=== PATIENT | male | born 1960 | race Caucasian/White ===

== ENCOUNTER 2022-05-25 05:53 | Day surgery (SDC) | payer BC, SELFPAY ==
[2022-05-25] VITALS (23 sets, daily range): BP systolic 105–151; BP diastolic 62–96; PULSE 60–86; RESP 12–18; TEMP 35.8–36.5; O2SAT 94–100; BMI 32.5
[2022-05-25] MEDS: ACETAMINOPHEN 500 MG TABLET 1000 MG PO ×3 (06:15→20:32)
[2022-05-25] MEDS: OXYCODONE (CR) 10 MG TAB.ER.12H PO (06:15)
[2022-05-25] MEDS: CELECOXIB 200 MG CAPSULE PO ×2 (06:15→20:32)
[2022-05-25] MEDS: SODIUM CHLORIDE 0.9 % (FLUSH) 10 ML SYRINGE IVF (06:45)
[2022-05-25] MEDS: LACTATED RINGERS 1000 ML 1,000 ML 100 ML IV (06:45)
--- NOTE | 2022-05-25 07:34 | CRLHL7_ITS ---
For Patients: As a result of the Cures Act, medical imaging exams and procedure reports are released immediately into your electronic medical record. You may view this report before your referring provider. If you have questions, please contact your health care provider. Indication: POST OP TKA Technique: Two views right knee Findings/Impression: Hardware from a right total knee arthroplasty is in satisfactory position. Bone alignment is normal. No sign of acute fracture. Postop changes are within normal limits. Dictated by Colton Spencer MD @ 05/25/2022 12:44:12 PM (Electronically Signed)
--- NOTE | 2022-05-25 07:34 | CRLHL7_ITS ---
For Patients: As a result of the Cures Act, medical imaging exams and procedure reports are released immediately into your electronic medical record. You may view this report before your referring provider. If you have questions, please contact your health care provider. Indication: POST OP TKA Technique: Two views left knee Findings/Impression: Hardware from a left total knee arthroplasty is in satisfactory position. Bone alignment is normal. No sign of acute fracture. Postop changes are within normal limits. Dictated by Colton Spencer MD @ 05/25/2022 12:45:11 PM (Electronically Signed)
[2022-05-25] MEDS: MIDAZOLAM HCL 1 MG/ML inj IVP (07:36)
[2022-05-25] MEDS: fentaNYL 100 MCG/2 ML inj IVP (07:36)
--- NOTE | 2022-05-25 07:36 | SUR.PREOP ---
TIME?OUT:?0735 PT/RN/MDA?VERIFICATION?OF?SURGICAL?SITE,?PROCEDURE,?AND?CONSENT OBTAINED?PRIOR?TO?INVASIVE?PROCEDURE.
--- NOTE | 2022-05-25 08:03 | W.ANESCHARGE ---
Anesthesia Charges Start Date/Time Anesthesia Start Date: 05/25/22 Anesthesia Start Time: 08:07 Stop Date/Time Anesthesia Stop Date: 05/25/22 Anesthesia Stop Time: 12:11
--- NOTE | 2022-05-25 08:04 | W.PM.NB ---
Nerve Block Nerve Block Time Seen by Provider: 07:38 Date Seen: 05/25/22 Type of block requested by surgeon for post-operative analgesia: adductor canal Side: bilateral Time out performed: Yes Verification of patient name: Yes Verification of date of : Yes Site marking: site marked Name of person performing procedure: Richi Continuous monitoring Was continuous monitoring of O2 sat, B/P, cardiac specialist, recorded every 15 minutes?: Yes Procedure Checklist: sterile prep, needles and gloves Ultrasound guided. Images saved: Yes Medications given in 5ml increments after negative aspiration: Marcaine %: 0.25 mL: 26 Needle gauge: 20 and Exparel mL: 14 Patient tolerated procedure well: Yes Additional comments: Needle noted adjacent to nerve Block Charges Block Charge (with Pro Fee): Femoral Nerve Use of Ultrasound Machine for Block: Yes- US Guidance/pain block
--- NOTE | 2022-05-25 08:05 | P.NB_ITS ---
Nerve Block Nerve Block Time Seen by Provider: 07:38 Type of block requested by surgeon for post-operative analgesia: geniculars Side: bilateral Time out performed: Yes Verification of patient name: Yes Verification of date of : Yes Site marking: site marked Name of person performing procedure: Richi Continuous monitoring Was continuous monitoring of O2 sat, B/P, front desk monitor, recorded every 15 minutes?: Yes Procedure Checklist: sterile prep, needles and gloves Medications given in 5ml increments after negative aspiration: Marcaine %: 0.25 mL: 14 Needle gauge: 25 and Exparel mL: 6 Patient tolerated procedure well: Yes Block Charges Block Charge (with Pro Fee): Genicular Nerve Block Use of Ultrasound Machine for Block: No
[2022-05-25] MEDS: CEFAZOLIN 2 GM in 0.9 % SODIUM CHLORIDE Mini-bag 100 ML IVPB ×3 (08:15→22:11)
[2022-05-25] MEDS: TRANEXAMIC ACID 100 MG/ML INJ 1000 MG IV (08:21)
[2022-05-25] MEDS: CEFAZOLIN 1 GM in 0.9 % SODIUM CHLORIDE Mini-bag 100 ML IVPB (10:18)
--- NOTE | 2022-05-25 11:17 | PM.ORPRC ---
Procedure Note Date of procedure: 05/25/22 Procedure: PREOPERATIVE DIAGNOSIS: 1. Bilateral knee osteoarthritis, primary, severe POSTOPERATIVE DIAGNOSIS: 1. Bilateral knee osteoarthritis, primary, severe PROCEDURE: 1. Bilateral total knee arthroplasty SURGEON: Armando Christensen MD. CARDIOPULMONARY TECHNICIAN AND EEG TECH: Cesar Sarmiento PA-C - Of note, an assistant cross country coach was critical for this case to aid in patient positioning, tissue retraction, limb manipulation/positioning, patient safety, and closure. ANESTHESIA: Spinal anesthetic IMPLANTS: DePuy J&J uncemented femur & tibia (cemented patella) TKA - Attune Right: PS femur size 7, tibia size 6, 5 mm poly spacer, 41 mm patella Left: PS femur size 6 regular, tibia size 6, 5 mm poly spacer, 41 mm patella TOURNIQUET: 90 minutes min on the right at 300 torr; 91 min on the left at 300 torr with 10+ minutes of tourniquet deflation between tourniquet inflation episodes. COMPLICATIONS: None evident INDICATIONS: The patient is a pleasant 61-year-old male who has experienced severe bilateral knee pain and difficulty bearing weight. Workup included x-rays which revealed severe osteoarthrosis in both knees. Given the deformity, the dysfunction, and the pain, as well as the failure of nonoperative management, recommendation was made for surgery. DESCRIPTION OF PROCEDURE: Following a thorough discussion of risks, benefits, and alternatives consent was obtained and the right knee was marked. The patient was brought to the operating room and placed supine on the operating table. Induction of anesthesia was undertaken. 2 g IV Ancef and 1 g tranexamic acid was administered within 1 hr of incision preoperatively. An additional 1 g IV Ancef was administered within 30 min of starting the 2nd side. Proper time-out was performed identifying proper patient, site, procedure. Bilateral operative extremities were prepped and draped in the appropriate sterile fashion using ChloraPrep after the patient was positioned supine with all bony prominences well padded. The left leg was initially covered with an extra draped and we began on the left TKA. A longitudinal, anterior, midline skin incision was made starting approximately 3cm proximal to the superior pole of the patella and advanced distal to the tibial tubercle. Full-thickness broad chondral loss medial femoral condyle and medial tibia. Significant chondromalacia patellofemoral compartment. To a lesser degree lateral compartment chondromalacia. All 3 compartments showed osteophytes. A median parapatellar arthrotomy was created and a moderate effusion evacuated. A medial subperiosteal sleeve was created with knife, amaya elevator and curved osteotome. The retropatellar fat pad was resected and the synovium in the suprapatellar pouch excised to visualize the anterior femoral cortex. Femoral preparation was performed via an intramedullary guide. Step drill allowed access into the femoral canal. The canal was suctioned, irrigated, suction, and this process repeated. The distal cutting guide was placed with 5 ? of valgus and 10 mm cut on the distal femur. Femur was sized using a anterior referencing guide in 3? of external rotation based on the posterior femoral condylar axis and trans epicondylar access/Whitesides line . This found have a best fit with the sizing noted above. The 4 in 1 cutting block was then placed, and the distal femur shaped accordingly. The box cut was then created and the trial implant inserted to confirm appropriate fit. We turned our attention to the proximal tibia. Extramedullary guide was utilized for cutting with the goal of being 90 degree cut from the mechanical axis of the tibia in the varus/valgus plane utilizing tibial crest as the primary alignment. Initially a 2 mm resection was performed from the medial tibial plateau. Ultimately, balancing was achieved in both flexion and extension in both varus and valgus. The knee was able to achieve full extension as well comfortably. The patella was initially measured and found have a thickness of 26 mm. It was resected back to approximately 16 mm. It was sized to be a best fit with as noted above. This was drilled, trial placed. All trials were placed and found to have an excellent stability and balance. At this stage, trial implants were removed, the knee was thoroughly irrigated with normal saline after injecting the posterior capsule with Marcaine with epi, and the cement was mixed. After irrigation, the knee was thoroughly dried, and cement placed, with the real tibial and femoral implants placed along with the patella. Trial poly spacer was placed and confirmed to have excellent range of motion and full extension, and the real poly spacer opened and inserted. All extra cement was removed, and a 3 min Betadine soak performed. Finally, a final irrigation round with normal saline was performed. Closure performed with 0 Vicryl and #0 Stratafix for the quad tendon/retinaculum. The tourniquet was deflated, and 2-0 Vicryl for the subcutaneous and 4-0 Monocryl for subcuticular closure was completed. Dressings were applied and attention was turned to the contralateral left side. This same process was utilized on the contralateral side including same approach, same dissection, same femoral tunnel access and irrigation, extramedullary guide for the tibia, with a similar process for cutting depths, and sizing of femoral & tibial implants. Of note, this contralateral knee showed similar changes of full-thickness broad chondral loss medial compartment. Also significant chondromalacia patellofemoral compartment. To lesser degree lateral compartment chondromalacia but tricompartmental osteophytes noted. The knee was placed through range of motion found to be stable to varus and valgus stress at 0 and 30? as well as with anterior health administrator all ranges at 15 -30 degree increments. Again a 3 min Betadine soak was performed when the real poly had been opened and inserted, and all remaining cement had been removed. Finally, final round of irrigation was completed with normal saline and closure performed as above with 0 Vicryl, # 0 Stratafix for the quad tendon/retinaculum, 2-0 Vicryl for subcutaneous and 4-0 Monocryl for subcuticular closure. PLAN: 1. Weight bear as tolerated operative extremities. 2. 23 hr perioperative antibiotics. 3. Ice. 4. PT/OT consults for ambulation assistance/mobility education. 5. Social work consult for discharge planning. 6. DVT prophylaxis with at SCDs, Calos Hose, and aspirin twice daily.
--- NOTE | 2022-05-25 12:11 | W.ANESCHARGE ---
Anesthesia Charges Start Date/Time Anesthesia Start Date: 05/25/22 Anesthesia Start Time: 08:07 Stop Date/Time Anesthesia Stop Date: 05/25/22 Anesthesia Stop Time: 12:11
[2022-05-25] MEDS: HYDROmorphone 0.5 mg/0.5 ml inj IVP ×3 (14:05→23:10)
[2022-05-25] MEDS: ONDANSETRON 2 MG/ML inj 4 MG IVP (14:16)
--- NOTE | 2022-05-25 14:28 | P.IMCN_ITS ---
Date of Consult Patient: Angelito Patient Consult date: 05/25/22 Requesting Physician: Orthopedics Primary Care Provider: Steve Engel MD Consult Narrative Reason for consult: hypercholesterolemia Narrative: Eliot Haas is a 61 year old relatively healthy male underwent elective bilateral total knee arthroplasties today by Dr. Morales. He is feeling chilly post operatively, and pain in both knees is 5/10 right now. He is otherwise doing well with no other complaints. Review of Systems Status of ROS: Reports: 6 or more systems reviewed and unremarkable except as noted in History and below PFSH PFS Medical History (Updated 05/25/22 @ 15:27 by Lilli Vicente MD) Calculus of right kidney (~2016) Colon polyp (~2018) Erectile dysfunction Pure hypercholesterolemia Surgical History (Updated 05/25/22 @ 15:27 by Lilli Vicente MD) H/O wisdom tooth extraction History of extraction of renal calculus (~2007) History of incision and drainage Hx of colonoscopy S/P total knee arthroplasty (05/25/22) Family History (Updated 05/25/22 @ 14:36 by Lilli Vicente MD) Mother Colon cancer, Onset Age: 74 Maternal Grandfather Heart disease Social History , [facility]) Highest level of school completed/degree received: Associate degree: occupational, technical, vocational program Smoking Status: Never smoker Do you use any of these nicotine containing products: None Second hand tobacco smoke exposure: No How often do you have a drink containing alcohol: 2-4 times a month Alcohol type: beer How many standard drinks containing alcohol do you have on a typical day: 1 or 2 How often do you have six or more drinks on one occasion: Never AUDIT-C Alcohol total score: 2 Non-prescribed substance use: denies use Caffeine: Yes (coffee, 2 cups/am) service: No Meds Home Medications and Allergies Home Medications Medication Instructions Recorded Confirmed Type sildenafil 100 mg tablet 50 mg PO DAILY PRN 03/11/22 05/25/22 History simvastatin 5 mg tablet 5 mg PO HS 03/11/22 05/25/22 History ascorbic acid (vitamin C) 500 mg 500 mg PO DAILY 05/23/22 05/25/22 History tablet calcium polycarbophil 625 mg 625 mg PO DAILY 05/23/22 05/25/22 History tablet (FiberCon) cholecalciferol (vitamin D3) 50 50 mcg PO DAILY 05/23/22 05/25/22 History mcg (2,000 unit) capsule glucosamine 116 mg-chondroitin 100 1 cap PO DAILY 05/23/22 05/25/22 History mg-dietary supplement #25 capsule multivitamin with minerals 1 tab PO DAILY 05/23/22 05/25/22 History (Multiple Vitamin-Minerals tablet) triamcinolone acetonide 0.025 % 1 applic topical BID 05/25/22 05/25/22 History topical cream Allergies Allergy/AdvReac Type Severity Reaction Status Date / Time No Known Drug Allergies Allergy Verified 05/25/22 06:15 Exam Narrative: Exam Narrative: General: No acute distress. Awake alert oriented x3. HEENT: Normocephalic atraumatic, pupils equally round and reactive to light and accommodation. Oropharynx clear. Mucous membranes are moist. No cervical lymphadenopathy, thyromegaly or carotid bruits. No JVD. Cardiovascular: Regular rate and rhythm. No murmurs, gallops, or rubs. Chest: No increased work of breathing. Clear to auscultation bilaterally. No crackles or wheezes. Abdomen: Bowel sounds present. Soft, nondistended, nontender. No hepatosplenomegaly or masses. Extremities: Bilateral knee bandages are clean, dry, and intact. No edema, no cyanosis or clubbing. Skin: No jaundice, no pallor, no rashes. Const: Vital Signs, click to edit/add: Vital Signs - 24 hr 05/25/22 06:21 05/25/22 07:35 05/25/22 07:40 Temperature 97.7 F Pulse Rate 72 68 60 Respiratory Rate 16 16 16 Blood Pressure 129/81 124/84 121/85 Pulse Oximetry 96 98 97 Oxygen Delivery Me thod Room Air Nasal Cannula Nasal Cannula Oxygen Flow Rate 2 2 05/25/22 07:45 05/25/22 12:06 05/25/22 12:10 Temperature 97.2 F L Pulse Rate 86 84 81 Respiratory Rate 16 16 14 Blood Pressure 123/96 H 127/84 122/87 Pulse Oximetry 97 98 98 Oxygen Delivery Me thod Nasal Cannula Room Air Room Air Oxygen Flow Rate 2 05/25/22 12:15 05/25/22 12:20 05/25/22 12:25 Temperature 97.3 F L Pulse Rate 78 81 82 Respiratory Rate 12 12 14 Blood Pressure 121/89 123/81 125/91 H Pulse Oximetry 96 96 97 Oxygen Delivery Me thod Room Air Room Air Room Air Oxygen Flow Rate 05/25/22 12:30 05/25/22 12:35 Temperature 97.3 F L Pulse Rate 79 77 Respiratory Rate 16 12 Blood Pressure 124/83 122/80 Pulse Oximetry 98 99 Oxygen Delivery Me thod Room Air Room Air Oxygen Flow Rate Documenting provider has reviewed patient's vital signs: yes Labs Labs: Ordering Physician: Armando Christensen M.D. Date of Service: 05/25/22 Procedure(s): XR knee LT 2V Accession Number(s): [id number] cc: Armando Christensen M.D.; Steve Engel M.D.~ For Patients: As a result of the Cures Act, medical imaging exams and procedure reports are released immediately into your electronic medical record. You may view this report before your referring provider. If you have questions, please contact your health care provider. Indication: POST OP TKA Technique: Two views left knee Findings/Impression: Hardware from a left total knee arthroplasty is in satisfactory position. Bone alignment is normal. No sign of acute fracture. Postop changes are within normal limits. Dictated by Colton Spencer MD @ 05/25/2022 12:45:11 PM (Electronically Signed) Ordering Physician: Armando Christensen M.D. Date of Service: 05/25/22 Procedure(s): XR knee RT 2V Accession Number(s): [id number] cc: Armando Christensen M.D.; Steve Engel M.D.~ For Patients: As a result of the Cures Act, medical imaging exams and procedure reports are released immediately into your electronic medical record. You may view this report before your referring provider. If you have questions, please contact your health care provider. Indication: POST OP TKA Technique: Two views right knee Findings/Impression: Hardware from a right total knee arthroplasty is in satisfactory position. Bone alignment is normal. No sign of acute fracture. Postop changes are within normal limits. Dictated by Colton Spencer MD @ 05/25/2022 12:44:12 PM (Electronically Signed) Assessment and Plan Assessment and plan (1) S/P total knee arthroplasty: Problem comment: Bilateral, [place] - Routine post op cares - Aspirin 81mg BID for VTE prophylaxis Status: Acute (2) Pure hypercholesterolemia: Problem comment: Continue home simvistatin Status: Chronic
--- NOTE | 2022-05-25 15:35 | PC.NURSE ---
Pt. up to the floor at 1245, alert and oriented. accompanied by his spouse. Bilateral dressings to left and right knee, C/D/I. Pt. rated pain 6/10 PRN Dilaudid administered x1. Zofran administered x1. Pt. tolerating ice chips, and fluids. VSS. 96-100% RA.
[2022-05-25] MEDS: LACTATED RINGERS 1000 ML 1,000 ML 75 ML IV (16:17)
[2022-05-25] MEDS: OXYCODONE 5 MG TABLET PO ×3 (17:17→22:10)
--- NOTE | 2022-05-25 18:08 | PC.NURSE ---
Deputy Chief Counsel assumed care at 1500, pt alert and oriented, a little sleepy, recently pt had emesis on prior shift so trying to rest. Vitals stable, on RA, temp around 96F, warm blankets applied. Pt more awake and alert this evening, denying nausea currently, tolerated 100% of dinner (sandwich, jello, fruit cup, bag of chips, sprite), PRN IV dilaudid 0.5mg admin x1 and PRN Oxycodone 5mg admin x1, pt states pain is brought to tolerable level. Pain education given on available PRNs, pt verbalizes understanding. Encouraged IS use and to dangle at side of bed, pt waning to wait a bit after dinner to ensure no further nausea/emesis will occur after dinner, understands important of some activity day of surgery. Pt reading exercise pamphlets in bed, watching TV currently. Cryo cuffs in place bilaterally with SANTOS hose and foot pumps, CMS intact, wiggling toes, moving feet. Using urinal independently in bed. If no further nausea or emesis this evening will saline lock IV per order as pt has been drinking adequately this evening, voiding and thus far tolerating diet. Call light within pt reach and able to appropriately verbalize all needs.
--- NOTE | 2022-05-25 19:02 | PC.NURSE ---
Pt up to chair, tolerated well. Ax2 with walker, denies dizziness. IV saline locked, tolerating PO intake well still.
[2022-05-25] MEDS: ASPIRIN 81 MG TABLET EC PO (20:32)
[2022-05-25] MEDS: SENNOSIDES 1 TAB TABLET 2 TAB PO (20:32)
[2022-05-25] MEDS: SIMVASTATIN 10 MG TABLET 5 MG PO (20:33)
--- NOTE | 2022-05-25 21:16 | PC.NURSE ---
Patient has given permission to give update to son.
[2022-05-26] MEDS: ACETAMINOPHEN 500 MG TABLET 1000 MG PO ×2 (02:07→09:04)
[2022-05-26] MEDS: OXYCODONE 5 MG TABLET PO ×4 (02:07→13:12)
[2022-05-26 03:00] VITALS: BP 126/80; PULSE 83; RESP 18; TEMP 36.8; O2SAT 97
[2022-05-26] MEDS: CEFAZOLIN 2 GM in 0.9 % SODIUM CHLORIDE Mini-bag 100 ML IVPB (06:05)
--- NOTE | 2022-05-26 06:41 | PC.NURSE ---
Status [id number] Alert and oriented. Pleasant and cooperative. VSS on room air. C/o bilateral knee pain, mostly to the right knee. PRN oxy and PRN dilaudid given, also receiving scheduled Tylenol. Pt was up in chair and ambulated to the bathroom and back to bed with assist of 1 and walker. IV ancef given. Denies nausea. Intermittent resting between cares.
[2022-05-26 07:01] LABS: Basophils Absolute Auto 0.01 K/uL (0.00-0.30); Basophils Percent Auto 0.1 % (0.0-3.0); Eosinophils Absolute Auto 0.06 K/uL (0.00-0.50); Eosinophils Percent Auto 0.6 % (0.0-7.0); Hemoglobin* 13.9 gm/dL (13.5-17.5); Lymphocytes Percent Auto 15.6 % (20-44); Mean Corpuscular HGB Conc 33 gm/dL (32-36); Mean Corpuscular Hemoglobin 30 pg (26-34); Mean Corpuscular Volume 91 fL (80-100); Monocytes Percent Auto 10.6 % (0.0-11.0); Neutrophils Percent Auto 73.1 % (42.0-72.0); Platelet Count* 185 K/uL (140-440); RDW Coefficient of Variation % 13.3 % (11.5-15.5); Red Blood Count 4.63 m/uL (4.30-5.90); White Blood Count* 9.97 K/uL (4.50-11.00)
[2022-05-26 07:05] LABS: Slide Review Reflex No
[2022-05-26 07:13] LABS: Potassium* 4.4 mmol/L (3.6-5.1); Sodium* 138 mmol/L (135-149)
[2022-05-26 07:16] LABS: Creatinine* 0.8 mg/dL (0.5-1.5); Est. Creatinine Clearance* 96.19; Estimated Glomerular Filt Rate 102 ml/min
[2022-05-26 07:17] LABS: Blood Urea Nitrogen* 16 mg/dL (7-30)
[2022-05-26 08:00] VITALS: BP 103/68; PULSE 88; RESP 16; TEMP 36.1; O2SAT 95
[2022-05-26 09:00] VITALS: O2SAT 94
[2022-05-26] MEDS: CELECOXIB 200 MG CAPSULE PO (09:05)
[2022-05-26] MEDS: SENNOSIDES 1 TAB TABLET 2 TAB PO (09:06)
[2022-05-26] MEDS: ASPIRIN 81 MG TABLET EC PO (09:06)
[2022-05-26] MEDS: MULTIVITAMIN/MINERALS 1 TABLET 1 TAB PO (09:06)
[2022-05-26] MEDS: ASCORBIC ACID 500 MG TABLET PO (09:06)
--- NOTE | 2022-05-26 12:27 | P.ORPN_ITS ---
Subjective Subjective Date Seen: 05/26/22 Principal diagnosis: Status postop day 1 bilateral total knee arthroplasty Interval history: Patient reports doing well. Episode of nausea/vomiting once on the floor post medication administration. Since that time, no further events overnight. He feels the pain block is nearly gone. Pain managed with scheduled/PRN medications and ice. DVT prophylaxis 81 mg aspirin by mouth twice daily, bilateral knee high Calos stockings, and SCDs. Denies fevers, chills, aches, N/V, CP, SOB/BALES, tachycardia, or lightheadedness. Ortho Exam Narrative Exam Narrative: -Patient appears comfortable; no apparent acute distress -Alert and oriented times 3 -Bilateral knees mildly swollen; soft tissues supple; no ecchymosis; no erythema tous streaking Warmth appropriate -Surgical dressings clean, dry, intact; no drainage -Bilateral calfs soft; no significant swelling, edema, tenderness, erythema, discoloration, warmth, or palpable cords -2+ DP/PT pulses, intact dermatomes and myotomes distally (5/5 strength) Const Vital Signs, click to edit/add: Vital Signs - 24 hr 05/25/22 12:30 05/25/22 12:35 05/25/22 14:30 Temperature 97.3 F L 97.6 F Pulse Rate 79 77 81 Pulse Rate [Bilateral Dorsalis Pedis] Pulse Rate [Left Pulse Oximeter] Respiratory Rate 16 12 16 Blood Pressure 124/83 122/80 Blood Pressure [Right Arm] 125/95 H Pulse Oximetry 98 99 Oxygen Delivery Method Room Air Room Air Room Air 05/25/22 13:00 05/25/22 13:00 05/25/22 13:15 Temperature 97.6 F 97.6 F 97.6 F Pulse Rate Pulse Rate [Bilateral Dorsalis Pedis] Pulse Rate [Left Pulse Oximeter] 84 84 72 Respiratory Rate 16 16 16 Blood Pressure Blood Pressure [Right Arm] 119/79 119/79 131/74 Pulse Oximetry 96 96 96 Oxygen Delivery Method Room Air Room Air Room Air 05/25/22 13:30 05/25/22 13:45 05/25/22 14:30 Temperature 97.6 F 97.6 F 97.6 F Pulse Rate Pulse Rate [Bilateral Dorsalis Pedis] Pulse Rate [Left Pulse Oximeter] 74 73 76 Respiratory Rate 16 16 16 Blood Pressure Blood Pressure [Right Arm] 125/73 127/69 115/76 Pulse Oximetry 94 96 100 Oxygen Delivery Method Room Air Room Air Room Air 05/25/22 15:00 05/25/22 15:00 05/25/22 15:00 Temperature 96.6 F L 96.6 F L Pulse Rate Pulse Rate [Bilateral Dorsalis Pedis] Pulse Rate [Left Pulse Oximeter] 68 68 Respiratory Rate 16 16 Blood Pressure Blood Pressure [Right Arm] 110/62 110/62 Pulse Oximetry 96 96 96 Oxygen Delivery Method Room Air Room Air 05/25/22 16:00 05/25/22 18:00 05/25/22 17:00 Temperature 96.8 F L 96.7 F L 96.4 F L Pulse Rate Pulse Rate [Bilateral Dorsalis Pedis] Pulse Rate [Left Pulse Oximeter] 66 68 77 Respiratory Rate 16 16 16 Blood Pressure Blood Pressure [Right Arm] 105/62 123/83 108/84 Pulse Oximetry 95 99 99 Oxygen Delivery Method Room Air Room Air Room Air 05/25/22 19:00 05/25/22 19:00 05/25/22 20:44 Temperature 96.5 F L 96.5 F L Pulse Rate Pulse Rate [Bilateral Dorsalis Pedis] Pulse Rate [Left Pulse Oximeter] 83 83 Respiratory Rate 18 18 Blood Pressure Blood Pressure [Right Arm] 151/90 H 151/90 H 116/76 Pulse Oximetry 97 97 Oxygen Delivery Method Room Air 05/25/22 23:00 05/25/22 23:00 05/25/22 23:00 Temperature 97.6 F Pulse Rate Pulse Rate [Bilateral Dorsalis Pedis] Pulse Rate [Left Pulse Oximeter] 76 76 Respiratory Rate 18 18 Blood Pressure Blood Pressure [Right Arm] 128/66 Pulse Oximetry 97 97 Oxygen Delivery Method Room Air 05/26/22 03:00 05/26/22 09:00 05/26/22 08:00 Temperature 98.3 F 97 F L Pulse Rate Pulse Rate [Bilateral Dorsalis Pedis] 88 Pulse Rate [Left Pulse Oximeter] 83 Respiratory Rate 18 16 Blood Pressure Blood Pressure [Right Arm] 126/80 103/68 Pulse Oximetry 97 94 95 Oxygen Delivery Method Room Air Room Air Assessment and Plan Assessment and plan (1) S/P total knee arthroplasty: Problem details: Bilateral, [place] - Routine post op cares - Aspirin 81mg BID for VTE prophylaxis Status: Acute (2) Pure hypercholesterolemia: Problem details: Continue home simvistatin Status: Chronic Plan - Complete 23 hour perioperative antibiotics. - PT/OT consult for education and assistance. - Social work consult for discharge planning - Prescribed analgesics as needed - DVT prophylaxis: 81 mg aspirin by mouth twice daily, bilateral knee high Calos Hose stockings and SCDs - Anticipation is for discharge to home with spouse today 05/26/2022 if the patient remains medically stable, pain is controlled, and they are safe with mobilization.
--- NOTE | 2022-05-26 12:30 | P.DS_ITS ---
DS: Providers Provider Date Seen: 05/26/22 Date of admission: Med/Surg Recovery 05/25/2022 Primary care physician: Steve Engel MD Consults: 05/25/22 Consult to Occupational Therapy [CONS] Routine Comment: Reason(s) for OT Consult:: Evaluate and Treat Any Restrictions?:: Wt Bearing as Tolerated Consult to Physical Therapy [CONS] Routine Comment: Reason(s) for PT Consult:: TKA TX Protocol POD#0 Any Restrictions?:: Wt Bearing as Tolerated 05/25/22 13:20 Consult to Occupational Therapy [CONS] Routine Comment: Reason(s) for OT Consult:: ADLs Prior to Discharge Any Restrictions?:: See Comment Comment: See nursing activity order for any restrictions. Consult to Physical Therapy [CONS] Routine Comment: Ambulate in the pompa today. Reason(s) for PT Consult:: TKA TX Protocol POD#0 Any Restrictions?:: See Comment Comment: See nursing activity order for any restrictions. Consult to Physician [CONS] Routine Comment: Consulting Provider: Hospitalists Has provider been notified: No Consult to Supervisor [employer] [CONS] Routine Comment: Reason for Consult:: Discharge Planning Needs Attending Physician on discharge: Armando Christensen MD Date of Discharge: 05/26/22 DS: Diagnosis Discharge Diagnosis (1) S/P total knee arthroplasty: Status: Acute Problem details: Bilateral, Carmen - Routine post op cares - Aspirin 81mg BID for VTE prophylaxis DS: Summary Hospital Course Hospital Course: The patient has a history of bilateral knee osteoarthritis, primary, severe. After appropriate preoperative evaluation, the patient underwent bilateral total knee arthroplasty, Press-Fit with cemented patella. Postoperatively given anticoagulation for deep vein thrombosis prophylaxis - 81 mg aspirin by mouth twice daily. They progressed to PT/OT and were felt ready and prepared for discharge to home with appropriate pain medication and anticoagulation medications. Status at Discharge Functional status at discharge: uses cane/walker Overall status at discharge: patient is progressing back to baseline Time Spent with Patient Time attestation: Total time spent providing and/or coordinating discharge services: Time spent: Less than 30 minutes Exam Const: Vital Signs, click to edit/add: Vital Signs - 24 hr 05/25/22 12:35 05/25/22 14:30 05/25/22 13:00 Temperature 97.3 F L 97.6 F 97.6 F Pulse Rate 77 81 Pulse Rate [Bilate ral Dorsalis Pedis ] Pulse Rate [Left P ulse Oximeter] 84 Respiratory Rate 12 16 16 Blood Pressure 122/80 Blood Pressure [Ri ght Arm] 125/95 H 119/79 Pulse Oximetry 99 96 Oxygen Delivery Me thod Room Air Room Air Room Air 05/25/22 13:00 05/25/22 13:15 05/25/22 13:30 Temperature 97.6 F 97.6 F 97.6 F Pulse Rate Pulse Rate [Bilate ral Dorsalis Pedis ] Pulse Rate [Left P ulse Oximeter] 84 72 74 Respiratory Rate 16 16 16 Blood Pressure Blood Pressure [Ri ght Arm] 119/79 131/74 125/73 Pulse Oximetry 96 96 94 Oxygen Delivery Me thod Room Air Room Air Room Air 05/25/22 13:45 05/25/22 14:30 05/25/22 15:00 Temperature 97.6 F 97.6 F Pulse Rate Pulse Rate [Bilate ral Dorsalis Pedis ] Pulse Rate [Left P ulse Oximeter] 73 76 Respiratory Rate 16 16 Blood Pressure Blood Pressure [Ri ght Arm] 127/69 115/76 Pulse Oximetry 96 100 96 Oxygen Delivery Me thod Room Air Room Air 05/25/22 15:00 05/25/22 15:00 05/25/22 16:00 Temperature 96.6 F L 96.6 F L 96.8 F L Pulse Rate Pulse Rate [Bilate ral Dorsalis Pedis ] Pulse Rate [Left P ulse Oximeter] 68 68 66 Respiratory Rate 16 16 16 Blood Pressure Blood Pressure [Ri ght Arm] 110/62 110/62 105/62 Pulse Oximetry 96 96 95 Oxygen Delivery Me thod Room Air Room Air Room Air 05/25/22 18:00 05/25/22 17:00 05/25/22 19:00 Temperature 96.7 F L 96.4 F L 96.5 F L Pulse Rate Pulse Rate [Bilate ral Dorsalis Pedis ] Pulse Rate [Left P ulse Oximeter] 68 77 83 Respiratory Rate 16 16 18 Blood Pressure Blood Pressure [Ri ght Arm] 123/83 108/84 151/90 H Pulse Oximetry 99 99 97 Oxygen Delivery Me thod Room Air Room Air Room Air 05/25/22 19:00 05/25/22 20:44 05/25/22 23:00 Temperature 96.5 F L 97.6 F Pulse Rate Pulse Rate [Bilate ral Dorsalis Pedis ] Pulse Rate [Left P ulse Oximeter] 83 76 Respiratory Rate 18 18 Blood Pressure Blood Pressure [Ri ght Arm] 151/90 H 116/76 128/66 Pulse Oximetry 97 97 Oxygen Delivery Me thod Room Air 05/25/22 23:00 05/25/22 23:00 05/26/22 03:00 Temperature 98.3 F Pulse Rate Pulse Rate [Bilate ral Dorsalis Pedis ] Pulse Rate [Left P ulse Oximeter] 76 83 Respiratory Rate 18 18 Blood Pressure Blood Pressure [Ri ght Arm] 126/80 Pulse Oximetry 97 97 Oxygen Delivery Me thod Room Air 05/26/22 09:00 05/26/22 08:00 Temperature 97 F L Pulse Rate Pulse Rate [Bilate ral Dorsalis Pedis ] 88 Pulse Rate [Left P ulse Oximeter] Respiratory Rate 16 Blood Pressure Blood Pressure [Ri ght Arm] 103/68 Pulse Oximetry 94 95 Oxygen Delivery Ak thod Room Air DS: Data Data Completed and Pending Labs on day of discharge: Labs from last 24 hours 05/26/22 05/26/22 06:32 06:32 WBC 9.97 RBC 4.63 Hgb 13.9 Hct 42.0 MCV 91 MCH 30 MCHC 33 RDW Coeff of Keith 13.3 Plt Count 185 Neut % (Auto) 73.1 H Lymph % (Auto) 15.6 L Carson % (Auto) 10.6 Eos % (Auto) 0.6 Baso % (Auto) 0.1 Neut # (Auto) 7.30 H Lymph # (Auto) 1.60 Carson # (Auto) 1.10 H Eos # (Auto) 0.06 Baso # (Auto) 0.01 Sodium 138 Potassium 4.4 BUN 16 Creatinine 0.8 Estimated Creat Clear 96.19 Estimated GFR 102 Discharge Plan Discharge Disposition: Home, Self-Care Discharging Surgeon: Aramndo Christensen Follow-Up Appointment: 1 week PO with Cesar HURLEY Prescriptions: New acetaminophen 500 mg capsule 500 - 1,000 mg PO Q6H MDD 4000mg PRNQty: 100 0RF celecoxib 200 mg capsule 200 mg PO BID Qty: 60 0RF aspirin 81 mg tablet,delayed release (DR/EC) 81 mg PO BID Qty: 60 0RF Rx Instructions: Medication to help prevent blood clots postoperatively; take TWICE daily. oxycodone 5 mg tablet 2.5 - 10 mg PO Q4-6H MDD 6 PRN (Reason: pain) Qty: 42 0RF Rx Instructions: Take as needed for postop pain: 2.5mg mild pain, 5mg moderate, 10mg severe pain; wean as tolerated. sennosides-docusate sodium [Senna-S] 8.6-50 mg tablet 1 - 4 tab-cap PO BID PRN (Reason: constipation) Qty: 60 0RF Rx Instructions: Hold medication if experiencing loose stools. Continued simvastatin 5 mg tablet 5 mg PO HS sildenafil 100 mg tablet 50 mg PO DAILY PRN ascorbic acid (vitamin C) 500 mg tablet 500 mg PO DAILY calcium polycarbophil [FiberCon] 625 mg tablet 625 mg PO DAILY cholecalciferol (vitamin D3) 50 mcg (2,000 unit) capsule 50 mcg PO DAILY [id number] 116-100 mg capsule 1 cap PO DAILY Multiple Vitamin-Minerals Tablet 1 tab PO DAILY triamcinolone acetonide 0.025 % cream 1 applic topical BID Activity Level: Activity as Tolerated, Weight Bearing as Tolerated and Use Walker Activity Detail: Wound: ?Do not remove original dressing; we will remove this at first postop visit in 1 week. Only remove dressing if integrity is in question. ?No immersing wound in water; showering okay; light scrub with your hand and body soap, rinse, dab dry ?Sutures are under the skin, will dissolve; allow surgical glue to come off naturally; do not scrub the wound or apply ointments/lotions ?Call our office with any redness that streaks, excessive drainage from the wound, or wound gapping. Ice/Elevate: ?Ice as needed for swelling and discomfort (cryocuff or ice pack); elevate frequently above the heart SANTOS socks: ?Wear for 1 month, remove for 1 hour 3 times per day ?These are frustrating to take on/off, but are important for blood clot prevention for 1 month after surgery Blood Clot Prevention (DVT): ?Medication: 81 mg aspirin by mouth twice daily (1 month) Driving: ?Do not drive while taking narcotic pain medication ?Anticipate 4-6 weeks no driving if operative leg is driving leg Dental: ?No elective dental work for 6 months post-op. If there is an urgent/emergent dental need, contact our office for an antibiotic prescription. Smoking/Alcohol: ?Do not smoke; do no drink alcohol especially when taking postoperative oral narcotic medication Seek Care from you Primary Care Provider if you experience the following issues in the postoperative phase and beyond: ?Bacterial infections such as: pneumonia, bacterial skin infection (cellulitis), UTI, high fever, chills unrelated to the operative body part - call your primary care physician urgently for treatment in hopes to protect your health and the metal implant. Referrals: ?PT, OT per patient preference - evaluate treat total knee arthroplasty protocol (gait training, ROM, ADLs) Follow up: ?Ortho surgeon follow-up in 6 weeks; repeat radiographs three views operative knee ?PA-C visit in 1 week *If there are any acute concerns regarding your surgery, please call our orthopedic clinic ([phone]) Discharge Diet: Regular Patient Instructions: Surgical Site Infections (DC) Forms: Work/School Release Follow-up: Steve Engel MD [Primary Care Provider] - Discharge Orders: Discharge Order (Routine); Ordered 05/26/22 Ordered By: Cesar Sarmiento
--- NOTE | 2022-05-26 14:07 | ONC.NURNOTE ---
alert and oriented. vs wnl. pain controlled. ls clear. enc IS hourly. dressings dry and intact. polar ice to wendy knees. berenice po no nausea or emesis. hypoactive bs. poss flatus. ls clear heart reg. no le edema. up with with no assist to halls and chair. . steady when up. discharged to home with .
== END 2022-05-26 13:50 | disposition home or self-care (01) ==
LOC: MEDSURG 07:59 → SS 14:35 → MEDSURG 14:37
PROVIDERS: PCP Family Medicine; Visit Provider Orthopaedic Surgery Sports Medicine
PROC: 0SRC0JZ Replacement of Right Knee Joint with Synthetic Substitute, Open Approach (ICD-10-PCS; CPT 27447; principal; 2022-05-25 07:45)
DX: M17.0 Bilateral primary osteoarthritis of knee (principal); E78.00 Pure hypercholesterolemia, unspecified
CPT/HCPCS: 27447; 01402; 36415; 73560; 76942; 82565; 84132; 84295; 84520; 85025; 97110; 97116; 97162; 97165; 97530; 97535; A9153; A9270; C1776; C9290; J0171; J0690; J1100; J1170; J2250; J2405; J2704; J2795; J3010; J3490; J7120

== ENCOUNTER 2022-07-07 08:00 | Outpatient (RCR) | payer BC, SELFPAY | END 2022-10-20 23:59 | disposition home or self-care (01) | PROVIDERS: PCP Family Medicine; Visit Provider Orthopaedic Surgery Sports Medicine | DX: M17.0 Bilateral primary osteoarthritis of knee (principal); Z51.89 Encounter for other specified aftercare | CPT/HCPCS: 97110; 97162; 97164 ==